=== PATIENT | female | born 1985 ===

== ENCOUNTER → 2018-03-11 | Outpatient (CLI) | payer OTHER, MEDICAID | LOC: BMCIMAGING 08:28 | PROVIDERS: ATTEND Allergy & Immunology Allergy | DX: R10.84 Generalized abdominal pain (principal) ==

== ENCOUNTER → 2018-06-18 | Outpatient (CLI) | payer MEDICAID, OTHER | LOC: BMCIMAGING 12:49 | PROVIDERS: ATTEND Allergy & Immunology Allergy | DX: Z03.89 Encounter for observation for other suspected diseases and conditions ruled out (principal) ==